=== PATIENT | female | born 1990 | race Caucasian/White ===

== ENCOUNTER 2019-01-24 14:13 | Outpatient (CLI) | payer MEDICAID ==
[2019-01-24] MEDS: TERBUTALINE 1 MG/ML INJ SC ×2 (16:10→17:10)
== END 2019-01-24 17:31 | disposition home or self-care (01) ==
LOC: OBT 14:13 → L-D 14:15 → OBT 17:31
DX: O47.1 False labor at or after 37 completed weeks of gestation (principal); O30.003 Twin pregnancy, unspecified number of placenta and unspecified number of amniotic sacs, third trimester; Z3A.33 33 weeks gestation of pregnancy
CPT/HCPCS: 76817; 76818

== ENCOUNTER 2019-02-23 18:35 | Inpatient (IN) | payer MEDICAID ==
[2019-02-23] MEDS ORDERED: METHYLERGONOVINE 0.2 MG INJ IM (20:00)
[2019-02-23] MEDS ORDERED: CEFAZOLIN 2 GM/50 ML (PMX) 50 ML IVPB (20:00)
[2019-02-23] MEDS ORDERED: OXYTOCIN 30 UNITS/LR 500 ML IV ×3 (20:00→23:11)
[2019-02-23] MEDS ORDERED: MISOPROSTOL 200 MCG TAB PR ×2 (20:00→22:30)
[2019-02-23] MEDS ORDERED: CARBOPROST 250 MCG INJ IM (20:00)
[2019-02-23] MEDS: AMPICILLIN 2 GM/NS (PMX) 100 ML IV (20:33)
[2019-02-23 20:38] LABS: ADD MAN DIFF? NO
[2019-02-23 20:42] LABS: BASOPHILS % 0.3 % (0.0-2.0); EOSINOPHILS % 0.3 % (0.0-7.0); HEMATOCRIT 33.9 % (37.0-47.0); HEMOGLOBIN 10.9 g/dl (12.0-16.0); LYMPHOCYTES # 1.8 10^3/ul (0.8-2.9); LYMPHOCYTES % 25.4 % (15.0-51.0); MEAN CORPUSCULAR HEMOGLOBIN 29.6 pg (29.0-33.0); MEAN CORPUSCULAR HGB CONC 32.2 g/dl (32.0-37.0); MEAN CORPUSCULAR VOLUME 92.1 fl (82.0-101.0); MEAN PLATELET VOLUME 12.9 fl (7.4-10.4); MONOCYTE # 0.6 10^3/ul (0.3-0.9); MONOCYTES % 8.2 % (0.0-11.0); NEUTROPHIL # 4.7 10^3/ul (1.6-7.5); NEUTROPHILS % 64.7 % (39.0-77.0); PLATELET COUNT 149 10^3/UL (140-415); RED BLOOD COUNT 3.68 10^6/ul (4.20-5.40); RED CELL DISTRIBUTION WIDTH 18.7 % (11.5-14.5)
[2019-02-23 20:42] LABS: WHITE BLOOD COUNT 7.2 10^3/ul (4.8-10.8)
[2019-02-23 20:47] LABS: ADD UMIC YES; UR ASCORBIC ACID NEGATIVE (NEGATIVE); UR BILIRUBIN (Dip) NEGATIVE (NEGATIVE); UR BLOOD (Dip) NEGATIVE (NEGATIVE); UR CLARITY CLEAR (CLEAR); UR COLOR STRAW (YELLOW); UR GLUCOSE (Dip) NEGATIVE (NEGATIVE); UR KETONES (Dip) NEGATIVE (NEGATIVE); UR LEUKOCYTE ESTERASE (Dip) 1+ Leu/ul (NEGATIVE); UR NITRITE (Dip) NEGATIVE (NEGATIVE); UR RBC 1 /HPF (0-5); UR SPECIFIC GRAVITY (Dip) 1.008 (1.003-1.030); UR SQUAMOUS EPITHELIAL CELL FEW /HPF (FEW); UR TOTAL PROTEIN (Dip) NEGATIVE (NEGATIVE); UR UROBILINOGEN (Dip) NEGATIVE (NEGATIVE); UR WBC 5 /HPF (0-5)
[2019-02-23 20:57] LABS: PROTIME 12.3 Sec (11.9-14.9)
[2019-02-23 20:58] LABS: PARTIAL THROMBOPLASTIN TIME 25.9 Sec (23.0-35.0)
[2019-02-23 21:03] LABS: ALANINE AMINOTRANSFERASE 13 IU/L (13-69); ALBUMIN 3.6 g/dl (3.3-4.9); ALKALINE PHOSPHATASE 196 IU/L (42-121); ANION GAP 8 (5-13); ASPARTATE AMINO TRANSFERASE 17 IU/L (15-46); BILIRUBIN,INDIRECT 0.2 mg/dl (0-1.1); BILIRUBIN,TOTAL 0.2 mg/dl (0.2-1.3); BLOOD UREA NITROGEN 8 mg/dl (7-20); CALCIUM 9.1 mg/dl (8.4-10.2); CARBON DIOXIDE 21 mmol/L (21-31); CHLORIDE 109 mmol/L (97-110); Estimated GFR > 60 mL/min (>60); GLUCOSE 68 mg/dl (70-220); POTASSIUM 3.9 mmol/L (3.5-5.1); SODIUM 138 mmol/L (135-144); TOTAL PROTEIN 6.6 g/dl (6.1-8.1); URIC ACID 4.2 mg/dl (3.1-7.9)
[2019-02-23] MEDS: LACTATED RINGER'S 1,000 ML IV (21:30)
[2019-02-23 21:33] LABS: HEPATITIS B SURFACE ANTIGEN NEGATIVE (NEGATIVE)
[2019-02-23] MEDS: CITRIC ACID/NA CITRATE 30 ML CUP PO (21:46)
[2019-02-23] MEDS ORDERED: ONDANSETRON 4 MG INJ (22:17)
[2019-02-23] MEDS ORDERED: KETOROLAC 30 MG INJ (22:17)
[2019-02-23] MEDS ORDERED: METOCLOPRAMIDE 10 MG INJ (22:17)
[2019-02-23] MEDS ORDERED: morphine SULFATE/PF (10 MG/10 ML) INJ (22:17)
[2019-02-23] MEDS ORDERED: OXYCODONE/ACETAMINOPHEN (5/325) TAB PO (22:30)
[2019-02-23] MEDS ORDERED: NA PHOSPHATE/BIPHOS 133 ML ENEMA PR (22:30)
[2019-02-23] MEDS ORDERED: EPHEDrine SULFATE 50 MG/5 ML SYG (22:47)
[2019-02-23] MEDS ORDERED: EPINEPHrine 0.1 MG/ML SYG (23:05)
[2019-02-23] MEDS ORDERED: MEPERIDINE 25 MG INJ IV (23:30)
[2019-02-23] MEDS ORDERED: morphine 2 MG INJ IV ×3 (23:30)
[2019-02-23] MEDS ORDERED: morphine (1 MG/ML) 10ML SYRINGE IV ×3 (23:30)
[2019-02-23] MEDS ORDERED: NALOXONE (0.4 MG/ML) INJ IV (23:30)
[2019-02-23] MEDS ORDERED: DIPHENHYDRAMINE 50 MG INJ IV (23:30)
[2019-02-23] MEDS ORDERED: KETOROLAC 30 MG INJ IV (23:30)
[2019-02-23] MEDS ORDERED: ONDANSETRON 4 MG INJ IV ×2 (23:30)
[2019-02-24] MEDS ORDERED: IBUPROFEN 600 MG TAB PO
[2019-02-24] MEDS: LACTATED RINGER'S 1,000 ML IV ×4 (02:15→17:27)
[2019-02-24] MEDS: KETOROLAC 30 MG INJ IV ×2 (06:40→14:04)
[2019-02-24 07:37] LABS: ADD MAN DIFF? NO
[2019-02-24 07:39] LABS: WHITE BLOOD COUNT 9.9 10^3/ul (4.8-10.8)
[2019-02-24 07:39] LABS: BASOPHILS % 0.2 % (0.0-2.0); EOSINOPHILS % 0.1 % (0.0-7.0); HEMATOCRIT 29.6 % (37.0-47.0); HEMOGLOBIN 9.5 g/dl (12.0-16.0); LYMPHOCYTES # 1.8 10^3/ul (0.8-2.9); LYMPHOCYTES % 17.8 % (15.0-51.0); MEAN CORPUSCULAR HEMOGLOBIN 29.9 pg (29.0-33.0); MEAN CORPUSCULAR HGB CONC 32.1 g/dl (32.0-37.0); MEAN CORPUSCULAR VOLUME 93.1 fl (82.0-101.0); MEAN PLATELET VOLUME 12.7 fl (7.4-10.4); MONOCYTE # 0.6 10^3/ul (0.3-0.9); MONOCYTES % 5.9 % (0.0-11.0); NEUTROPHIL # 7.5 10^3/ul (1.6-7.5); NEUTROPHILS % 75.3 % (39.0-77.0); PLATELET COUNT 124 10^3/UL (140-415); RED BLOOD COUNT 3.18 10^6/ul (4.20-5.40); RED CELL DISTRIBUTION WIDTH 18.8 % (11.5-14.5)
[2019-02-24] MEDS: SENNA/DOCUSATE NA (8.6MG/50MG) TAB PO ×2 (09:37→21:26)
[2019-02-24] MEDS: DIPHENHYDRAMINE 50 MG INJ IV (17:51)
[2019-02-24 19:31] LABS: RAPID PLASMA REAGIN NONREACTIVE (NR)
[2019-02-24] MEDS: IBUPROFEN 600 MG TAB PO (23:41)
[2019-02-25] MEDS: LACTATED RINGER'S 1,000 ML IV ×3 (05:00→21:00)
[2019-02-25] MEDS: IBUPROFEN 600 MG TAB PO ×4 (05:57→23:45)
[2019-02-25] MEDS: SENNA/DOCUSATE NA (8.6MG/50MG) TAB PO ×2 (08:31→20:47)
[2019-02-25] MEDS: LANOLIN HPA 1 PKT TOP (08:31)
[2019-02-25] MEDS: OXYCODONE/ACETAMINOPHEN (5/325) TAB PO ×3 (08:32→19:47)
[2019-02-26] MEDS: LACTATED RINGER'S 1,000 ML IV (05:00)
[2019-02-26] MEDS: IBUPROFEN 600 MG TAB PO ×2 (05:38→13:39)
[2019-02-26] MEDS: OXYCODONE/ACETAMINOPHEN (5/325) TAB PO (08:27)
[2019-02-26] MEDS: SENNA/DOCUSATE NA (8.6MG/50MG) TAB PO (08:27)
[2019-02-26] MEDS ORDERED: MEASLES,MUMPS,RUBELLA VACCINE INJ SC* (09:00)
[2019-02-26] MEDS: DIPHTH/TET/ACEL PERTUSS (ADULT) 0.5 ML VIAL IM* (13:40)
== END 2019-02-26 15:05 | disposition home or self-care (01) | DRG 788 ==
LOC: OBT 18:35 → PP1 02-24 02:02 → L-D 18:36 → OBT 19:50 → L-D 19:50
PROC: 10D00Z1 Extraction of Products of Conception, Low, Open Approach (ICD-10-PCS; principal; 2019-02-23)
DX: O30.043 Twin pregnancy, dichorionic/diamniotic, third trimester (principal); O32.1XX0 Maternal care for breech presentation, not applicable or unspecified; O34.211 Maternal care for low transverse scar from previous cesarean delivery; Z3A.37 37 weeks gestation of pregnancy; Z37.2 Twins, both liveborn
CPT/HCPCS: 80053; 81001; 84560; 85025; 85384; 85610; 85730; 86592; 86850; 86900; 86901; 87340; 90715; 99464